=== PATIENT | male | born 1960 | race Caucasian/White ===

== ENCOUNTER 2018-06-16 07:41 | Outpatient (CLI) | payer BC ==
[2018-06-16] MEDS ORDERED: Iopamidol-370 76% 500 ML 1 ML ONE (09:00)
--- NOTE | 2018-06-16 10:20 | CT ---
CT OF ABDOMEN AND PELVIS: DATE: 06/16/2018. COMPARISON: None. HISTORY: Weight loss, abdominal discomfort and nausea. TECHNIQUE: Axial CT imaging at 5 mm intervals from the lung bases through pubic symphysis with intravenous and o ral contrast media. Coronal reformatted imaging obtained. FINDINGS: The imaged lung bases appear unremarkable. There is a sliding hiatal hernia which is small to moderate in size. There are a few nonspecific mil dly prominent adjacent paraesophageal nodes to the right of midline measuring up to approximately 7 m m short axis dimension. No free intraperitoneal air or fluid. The liver, spleen, gallbladder, pancreas, adrenal glands, and kidneys demonstrate no acute findings. There are a few scattered sigmoid colonic diverticula without evidence for diverticulitis. No eviden ce for bowel inflammatory change or obstruction is seen. The vascular structures of the abdomen and pelvis appear patent. There is mild mucosal prominence/soft tissue density in the region of the gastric fundus, seen on cor onal image 23 and axial image 19. This could be secondary to underdistension, but a mass in the luh on of the gastric fundus cannot be excluded on the basis of this examination. No lymphadenopathy is noted within the abdomen or pelvis. Review of the osseous structures demonstra vadim no worrisome lytic or blastic bone lesion. IMPRESSION: 1. Hiatal hernia noted with soft tissue density in the region of the gastric fundus. An underlying gastric fundal mass lesion cannot be excluded. Recommend direct visualization via endoscopy. 2. Diverticulosis of the sigmoid colon without evidence for diverticulitis. CODE T POS: CHRISTOPHER
== END 2018-06-16 07:42 | disposition home or self-care (01) ==
LOC: BICCT 07:41
PROVIDERS: ATTEND Family Medicine
DX: R63.4 Abnormal weight loss (principal); K44.9 Diaphragmatic hernia without obstruction or gangrene; K57.30 Diverticulosis of large intestine without perforation or abscess without bleeding
CPT/HCPCS: 74177; Q9967

== ENCOUNTER 2021-03-27 10:42 | Outpatient (CLI) | payer BC | END 2021-03-27 10:43 | disposition home or self-care (01) | LOC: BICMRI 10:42 | PROVIDERS: ATTEND Family Medicine | DX: G43.019 Migraine without aura, intractable, without status migrainosus (principal) | CPT/HCPCS: 70551 ==